=== PATIENT | male | born 1985 | race Asian ===

== ENCOUNTER 2018-10-23 20:01 | Emergency (ER) | payer SELFPAY ==
[~2018-10-23] VITALS: Ht 180.3 cm; Wt 74.8 kg
[2018-10-23 20:06] VITALS: BP 116/78
[2018-10-23] MEDS ORDERED: LIDOCAINE 1%-EPI 1:100,000 20 ML VIAL ONE (20:16)
[2018-10-23] MEDS ORDERED: TDAP [DIPH/PERTUSSIS/TET] 0.5 ML VIAL IM ONE ×2 (20:27→20:30)
[2018-10-23] MEDS ORDERED: LIDOCAINE 1%-EPI 1:100,000 20 ML VIAL TP ONE (20:30)
== END 2018-10-23 21:30 | disposition home or self-care (01) ==
LOC: ER 20:03
DX: S71.111A Laceration without foreign body, right thigh, initial encounter (principal); W27.8XXA Contact with other nonpowered hand tool, initial encounter; Y93.89 Activity, other specified; Y92.89 Other specified places as the place of occurrence of the external cause; Y99.8 Other external cause status
CPT/HCPCS: 12002; 90471; 90715; 99283; A6403; J3490

== ENCOUNTER 2018-11-07 00:28 | Emergency (ER) | payer SELFPAY ==
[~2018-11-07] VITALS: Ht 180.3 cm; Wt 68.5 kg
[2018-11-07 00:40] VITALS: BP 108/77
--- NOTE | 2018-11-07 01:13 | NUR ---
PT WAS PRESENTED TO THE ER FOR SUTURE REMOVAL ON R THIGH. NOTED W/ SIX INTACT SUTERES W/ NO S/S OF INFECTION. NO REDNESS OR DISCHARGES. SUTIRES WERE REMOVED COMPLETELY. NO BLEEDING NOTED. PT TOLERATED THE PROCEDURE WELL. AREA WERE EVALUATED BY THE MD. ALL QUESTIONS ANSWERE. S/S OF INFECTION ON WOUND CARE REVIEWED WITH THE PT W. UNDERSTANDING. Patient discharged to home in stable condition. Written and verbal after care instructions given. Patient verbalizes understanding of instruction.
== END 2018-11-07 01:18 | disposition home or self-care (01) ==
LOC: ER 00:35
DX: S81.811D Laceration without foreign body, right lower leg, subsequent encounter (principal); X58.XXXD Exposure to other specified factors, subsequent encounter